=== PATIENT | female | born 1995 | race Two or more races ===

== ENCOUNTER 2018-04-14 16:50 | Emergency (ER) | payer SELFPAY ==
[~2018-04-14] VITALS: Ht 162.6 cm; Wt 68.0 kg
[2018-04-14 17:16] VITALS: BP 130/72
[2018-04-14 17:30] LABS: BILIRUBIN,URINE NEGATIVE (NEG); CLARITY,URINE CLOUDY; COLOR,URINE YELLOW; NITRITE,URINE NEGATIVE (NEG); PROTEIN,URINE NEGATIVE (NEG-TRACE)
[2018-04-14 17:36] LABS: BASO # 0.1 x10^3/uL (0.0-0.2); BASO % 1 % (0-3); EOS # 0.2 x10^3/uL (0.0-0.7); EOS % 2 % (0-3); HEMATOCRIT 38.1 % (36.0-47.0); HEMOGLOBIN 13.6 g/dL (12.0-15.5); LYMPH # 2.6 x10^3/uL (1.0-4.8); LYMPH % 31 % (24-48); MEAN CORPUSCULAR HEMOGLOBIN 33 pg (25-35); MEAN CORPUSCULAR HGB CONC 36 g/dL (31-37); MEAN CORPUSCULAR VOLUME 92 fL (79-100); MONO # 0.6 x10^3/uL (0.0-1.1); MONO % 8 % (0-9); NEUT # 4.8 x10^3uL (1.8-7.7); NEUT % 58 % (31-73); PLATELET COUNT 232 x10^3/uL (140-400); RED BLOOD COUNT 4.13 x10^6/uL (3.50-5.40); RED CELL DISTRIBUTION WIDTH 13.7 % (11.5-14.5); WHITE BLOOD COUNT 8.4 x10^3/uL (4.0-11.0)
[2018-04-14 17:36] LABS: BACTERIA,URINE MANY /HPF (0-FEW); SQUAMOUS EPITHELIAL CELL,UR MOD /LPF
[2018-04-14 17:40] LABS: RBC,URINE OCC /HPF (0-2)
--- NOTE | 2018-04-14 17:40 | PHYS DOC ---
Past Medical History Past Medical History: No Pertinent History Past Surgical History: No Surgical History Alcohol Use: None Drug Use: None Adult General Chief Complaint Chief Complaint: VAGINAL BLEEDING HPI HPI Patient is a 22 year old female who presents to the emergency department with complaints of vaginal spotting for the last 4 days. Patient states that she is currently 8 weeks , she is unsure of her last menstrual period. however, at the clinic last week she was informed that she is 8 weeks along. She denies any lower abdominal pain, pelvic pain, fever, cough, shortness of breath, or dysuria. She reports that she has had some urinary frequency and pain in the right low back area. She denies any irregular vaginal discharge. Patient states that she is 2 para 1. Currently the patient denies any pain. Review of Systems Review of Systems Constitutional: Denies fever or chills [] Eyes: Denies change in visual acuity, redness, or eye pain [] HENT: Denies nasal congestion or sore throat [] Respiratory: Denies cough or shortness of breath [] Cardiovascular: No additional information not addressed in HPI [] GI: Denies abdominal pain, nausea, vomiting, bloody stools or diarrhea [] : Denies dysuria or hematuria [] Musculoskeletal: Denies back pain or joint pain [] Integument: Denies rash or skin lesions [] Neurologic: Denies headache, focal weakness or sensory changes [] Endocrine: Denies polyuria or polydipsia [] All other systems were reviewed and found to be within normal limits, except as documented in this note. Physical Exam Physical Exam Constitutional: Well developed, well nourished, no acute distress, non-toxic appearance. [] HENT: Normocephalic, atraumatic, bilateral external ears normal, oropharynx moist, no oral exudates, nose normal. [] Eyes: PERRLA, EOMI, conjunctiva normal, no discharge. [] Pelvic Exam: Associate Director Of Development present Abdomen: Nontender External Genitalia: Normal Skin Speculum: Normal vaginal mucosa, dark red bloody vaginal discharge present , OS closed Bimanual: No adnexal masses or tenderness, No CMT Skin: Warm, dry, no erythema, no rash. [] Back: No tenderness, no CVA tenderness. [] Extremities: No tenderness, no cyanosis, no clubbing, ROM intact, no edema. [] Neurologic: Alert and oriented X 3, normal motor function, normal sensory function, no focal deficits noted. [] Psychologic: Affect normal, judgement normal, mood normal. [] Current Patient Data Vital Signs Vital Signs Date Time Temp Pulse Resp B/P (MAP) Pulse Ox O2 Delivery O2 Flow Rate FiO2 04/14/18 17:16 98.9 90 16 130/72 (91) 99 Room Air 98.9 Lab Values Laboratory Tests Test 04/14/18 17:10 04/14/18 17:27 04/14/18 17:30 Urine Collection Type Unknown Urine Color Yellow Urine Clarity Cloudy Urine pH 7.0 Urine Specific [place] 1.020 Urine Protein Negative mg/dL (NEG-TRACE) Urine Glucose (UA) Negative mg/dL (NEG) Urine Ketones (Stick) Negative mg/dL (NEG) Urine Blood Small (NEG) Urine Nitrite Negative (NEG) Urine Bilirubin Negative (NEG) Urine Urobilinogen Dipstick 1.0 mg/dL (0.2 mg/dL) Urine Leukocyte Esterase Large (NEG) Urine RBC Occ /HPF (0-2) Urine WBC 5-10 /HPF (0-4) Urine Squamous Epithelial Cells Mod /LPF Urine Bacteria Many /HPF (0-FEW) Urine Mucus Mod /LPF POC Urine HCG, Qualitative Hcg positive (Negative) White Blood Count 8.4 x10^3/uL (4.0-11.0) Red Blood Count 4.13 x10^6/uL (3.50-5.40) Hemoglobin 13.6 g/dL (12.0-15.5) Hematocrit 38.1 % (36.0-47.0) Mean Corpuscular Volume 92 fL (79-100) Mean Corpuscular Hemoglobin 33 pg (25-35) Mean Corpuscular Hemoglobin Concent 36 g/dL (31-37) Red Cell Distribution Width 13.7 % (11.5-14.5) Platelet Count 232 x10^3/uL (140-400) Neutrophils (%) (Auto) 58 % (31-73) Lymphocytes (%) (Auto) 31 % (24-48) Monocytes (%) (Auto) 8 % (0-9) Eosinophils (%) (Auto) 2 % (0-3) Basophils (%) (Auto) 1 % (0-3) Neutrophils # (Auto) 4.8 x10^3uL (1.8-7.7) Lymphocytes # (Auto) 2.6 x10^3/uL (1.0-4.8) Monocytes # (Auto) 0.6 x10^3/uL (0.0-1.1) Eosinophils # (Auto) 0.2 x10^3/uL (0.0-0.7) Basophils # (Auto) 0.1 x10^3/uL (0.0-0.2) Maternal Serum HCG Beta Subunit 16479 mIU/mL (0-5) H Laboratory Tests 04/14/18 17:30 EKG EKG [] Radiology/Procedures Radiology/Procedures [] Course & Med Decision Making Course & Med Decision Making Pertinent Labs and Imaging studies reviewed. (See chart for details) Dx: threatened miscarriage, UTI UTI concerning for UTI pt is symptomatic, prescription for keflex written. BHCG was 7[address]62, U/S revealed single live intrauterine . Pt instructed to increase clear fluids, avoid bladder irritants such as caffeine, carbonation, and spicy foods and pelvic rest until follow up appointment with OBGyn, call in the morning for an appointment. Return to ER if symptoms worsen. Patient's and Patient verbalized an understanding of home care, medications, follow-up, and return to ED instructions and were in agreement with the plan of care. [] Dragon Disclaimer Dragon Disclaimer This electronic medical record was generated, in whole or in part, using a voice recognition dictation system. Departure Departure Impression: Primary Impression: Threatened miscarriage in early Additional Impressions: Vaginal bleeding in patient at less than 20 weeks gestation UTI (urinary tract infection) Disposition: 01 HOME, SELF-CARE Condition: STABLE Referrals: NO PCP (PCP) Patient Instructions: Threatened Miscarriage, [id number], Urinary Tract Infection, [id number] Additional Instructions: Fill prescription and use as directed. [place] Hcg [place] HCG was [address]68, ultrasound revealed a single live intrauterine . Increase clear fluids, avoid bladder irritants such as caffeine, carbonation, and spicy foods and pelvic rest until follow up appointment with OBGyn, call in the morning for an appointment. Return to ER if symptoms worsen. Scripts Cephalexin (CEPHALEXIN) 500 Mg Capsule 1 CAP PO QID for 7 Days, #28 CAP 0 Refills Prov: BOGUSLAW,BRIGETTE D [employer] VICE PRESIDENT 04/14/18 Problem Qualifiers Additional Impressions: UTI (urinary tract infection) Urinary tract infection type: site unspecified Hematuria presence: with hematuria Qualified Codes: N39.0 - Urinary tract infection, site not specified ; R31.9 - Hematuria, unspecified BRIGETTE COLVIN [employer] VICE PRESIDENT Apr 14, 2018 17:40
--- NOTE | 2018-04-14 19:19 | RAD ---
Early OB ultrasound History: Vaginal bleeding in early . Comparison: None. Technique: Transabdominal imaging was performed for initial evaluation of the pelvis. Endovaginal imaging was performed to evaluate optimally the lower uterine segment and to increase sensitivity for detection of intrauterine . Findings: Transabdominal imaging: Uterus measures 10.8 cm in length. Saclike fluid collection is present in the endometrial canal. No convincing yolk sac or embryonic pole is identified with transabdominal imaging. Ovaries are not well imaged. Endovaginal imaging: Cervical length is 3.33 cm. Single live intrauterine is identified with gestational sac, yolk sac, and embryonic pole identified. [place]-rump length is 3.6 mm corresponding to 6 weeks 0 days. Estimated date of delivery based on this measurement is December 08, 2018. Gestational age estimation by last menstrual period calculation is provided as 17 weeks 6 days. Gestational sac appears regular. No subchorionic hemorrhage is identified. Embryonic heart motion is 114 bpm. The right ovary measures 3.1 x 1.5 x 2.3 cm. The left ovary measures 3.4 x 2.6 x 3.0 cm and demonstrates a corpus luteum cyst measuring 3.0 cm. Both ovaries are without evidence of torsion. Impression: 1. Single live intrauterine . Average ultrasound age by crown-rump length is 6 weeks 0 days. Estimated date of delivery based on this measurement is December 08, 2018. 2. The provided gestational age estimation by last menstrual period calculation is 17 weeks 6 days. Recommend clinical correlation as to cause of discrepancy. Electronically signed by: Miguel Norris MD (04/14/2018 7:16 PM) [facility]
[2018-04-14] MEDS ORDERED: CEPH500C PO (19:42)
== END 2018-04-14 19:50 | disposition home or self-care (01) ==
LOC: ER 16:50
DX: O20.0 Threatened abortion (principal); O23.41 Unspecified infection of urinary tract in pregnancy, first trimester; Z3A.08 8 weeks gestation of pregnancy
CPT/HCPCS: 36415; 76801; 76817; 81001; 81025; 84702; 85025; 86900; 86901; 87086; 99285-25